=== PATIENT | male | born 1990 | race Caucasian/White ===

== ENCOUNTER 2017-01-11 14:01 | Emergency (ER) | payer OTHER ==
[2017-01-11 14:19] VITALS: BP 120/62
--- NOTE | 2017-01-11 15:44 | UC ---
Skin Complaint HPI - HPI Summary HPI Summary: pt presents with request for suture removal to second right distal finger. Sutures were placed 12 days ago at [facility] - History of Current Complaint Chief Complaint: [facility] Time Seen by Provider: 01/11/17 14:57 Stated Complaint: SUTURE REMOVAL Hx Obtained From: Patient Onset/Duration: Sudden Onset Skin Exposure Onset/Duration: Days Ago Timing: Constant Onset Severity: Moderate Current Severity: Mild Pain Intensity: 0 Pain Scale Used: 0-10 Numeric Location: Discrete - right second distal finger Character: Painful - tender Aggravating: Touch Associated Signs & Symptoms: Positive: Tenderness Related History: Other: - laceration and suture removal - Allergy/Home Medications Allergies/Adverse Reactions: Allergies Allergy/AdvReac Type Severity Reaction Status Date / Time No Known Allergies Allergy Verified 01/11/17 14:19 Home Medications: Home Medications NK [No Home Medications Reported] 01/11/17 [History Confirmed 01/11/17] Review of Systems Constitutional: Negative Skin: Other - laceration with sutures intact Eyes: Negative ENT: Negative Respiratory: Negative Cardiovascular: Negative Gastrointestinal: Negative Genitourinary: Negative Motor: Negative Neurovascular: Negative Musculoskeletal: Negative Neurological: Negative Psychological: Negative All Other Systems Reviewed And Are Negative: Yes PMH/Surg Hx/FS Hx/Imm Hx Previously Healthy: Yes - Surgical History Surgical History: None - Family History Known Family History: Positive: Other - positive for laceration - Social History Alcohol Use: Rare Substance Use Type: None Smoking Status (MU): Heavy Every Day Tobacco Smoker Type: Cigarettes Amount Used/How Often: 1PPD Have You Smoked in the Last Year: Yes Household Exposure Type: Cigarettes Physical Exam Triage Information Reviewed: Yes Appearance: Well-Appearing Vital Signs: Initial Vital Signs Temp 98 F 01/11/17 14:11 Pulse 72 01/11/17 14:11 Resp 16 01/11/17 14:11 BP 120/62 01/11/17 14:11 Pulse Ox 99 01/11/17 14:11 Eye Exam: Normal Neck exam: Normal Respiratory Exam: Other Respiratory: Positive: No respiratory distress Musculoskeletal Exam: Normal Neurological Exam: Normal Psychological Exam: Normal Skin Exam: Other - 4 sutures intact right second anterior finger mid pad of finger. edges well approximated no s/sx of infection. 4 sutures removed and patient tolerated procedure well. Course/Dx - Differential Diagnoses - Skin Complaint Differential Diagnoses: Other - healing wound suture removal - Diagnoses Provider Diagnoses: suture removal (4 sutures removed). healing wound Discharge - Discharge Plan Condition: Stable Disposition: HOME Patient Education Materials: Stitches Removal (ED) Referrals: Jin Ulloa MD [Primary Care Provider] - If Needed
== END 2017-01-11 15:15 | disposition home or self-care (01) ==
LOC: UCCORT 14:01
DX: Z48.02 Encounter for removal of sutures (principal); F17.210 Nicotine dependence, cigarettes, uncomplicated
CPT/HCPCS: 99211; G0463